=== PATIENT | male | born 1995 | race Caucasian/White ===

== ENCOUNTER 2021-03-31 07:45 | Emergency (ER) | payer OTHER ==
[~2021-03-31] VITALS: Ht 188 cm; Wt 105.0 kg
[2021-03-31 07:48] VITALS: BP 123/68
[2021-03-31] MEDS ORDERED: CIPR10DR RIGHT EAR (08:23)
== END 2021-03-31 08:29 | disposition home or self-care (01) ==
LOC: ER 07:46
DX: S00.411A Abrasion of right ear, initial encounter (principal); X58.XXXA Exposure to other specified factors, initial encounter; Y93.9 Activity, unspecified; Y92.89 Other specified places as the place of occurrence of the external cause; Y99.8 Other external cause status
CPT/HCPCS: 99283